=== PATIENT | female | born 1960 | race African-American/Black ===

== ENCOUNTER 2019-04-15 01:37 | Inpatient (IN) | payer MEDICAID ==
[~2019-04-15] VITALS: Ht 162.6 cm; Wt 44.9 kg
[2019-04-15] MEDS ORDERED: ONDANSETRON HCL 4MG/2ML INJ IV STA (02:35)
[2019-04-15] MEDS ORDERED: SODIUM CHLORIDE 0.9% 1,000 ML IV ONE (02:35)
[2019-04-15] MEDS ORDERED: MORPHINE SULFATE 4 MG/ML CPJ (NOT FOR IM USE) IV STA (02:35)
[2019-04-15 03:04] LABS: BASOPHILS % 0.2 % (0.0-2.0); EOSINOPHILS % 0.1 % (0.0-5.0); HEMATOCRIT. 24.6 % (36.0-48.0); LYMPHOCYTES % 13.6 % (20.0-50.0); MEAN CORPUSCULAR HEMOGLOBIN 28.3 pg (28.0-32.0); MEAN CORPUSCULAR VOLUME 87.2 fL (81.0-99.0); MEAN PLATELET VOLUME 6.6 fl (7.4-10.4); MONOCYTES % 7.3 % (2.0-8.0); NEUTROPHILS % 78.8 % (40.0-76.0); PLATELET 467 x1000/uL (130-400); RED BLOOD CELL COUNT 2.82 mill/uL (4.2-5.4); RED CELL DISTRIBUTION WIDTH 15.9 % (11.6-14.6)
[2019-04-15 03:05] LABS: CHLORIDE 102 mEq/L (98-107)
[2019-04-15] MEDS ORDERED: GUAIFENESIN 200MG/10ML SUGAR FREE UDC PO PRN (06:45)
[2019-04-15] MEDS ORDERED: NITROGLYCERIN 0.4MG TABLET SL SL PRN (06:45)
[2019-04-15] MEDS ORDERED: DEXTROSE 50% WATER 50ML SYRINGE IV PRN (06:45)
[2019-04-15] MEDS ORDERED: ENOXAPARIN 40MG/0.4ML SYR SUBCUT SCH (06:45)
[2019-04-15] MEDS ORDERED: ACETAMINOPHEN 325MG TABLET PO PRN (06:45)
[2019-04-15] MEDS ORDERED: LORAZEPAM 0.5MG TABLET PO PRN (06:45)
[2019-04-15] MEDS ORDERED: CLONIDINE 0.1MG TABLET PO PRN (06:45)
[2019-04-15] MEDS ORDERED: DOCUSATE SODIUM 100MG CAPSULE PO PRN (06:45)
[2019-04-15] MEDS ORDERED: MAGNESIUM/ALUMINUM HYDROXIDE/SIMETHICONE 30ML UDC PO PRN (06:45)
[2019-04-15] MEDS ORDERED: IPRATROPIUM/ALBUTEROL 0.5-3(2.5)MG/3ML NEB NEB PRN (06:45)
[2019-04-15] MEDS ORDERED: ONDANSETRON HCL 4MG/2ML INJ IV PRN (06:45)
[2019-04-15] MEDS ORDERED: KETOROLAC 15MG/ML VIAL IV PRN (06:45)
[2019-04-15 07:19] LABS: FOLIC ACID (FOLATE) SERUM 12.3 ng/mL (>5.38)
[2019-04-15 10:20] LABS: CLARITY URINE CLEAR (CLEAR); COLOR URINE YELLOW (YELLOW); KETONES URINE NEGATIVE (NEGATIVE); LEUKOCYTE ESTERASE URINE NEGATIVE (NEGATIVE); NITRITE URINE NEGATIVE (NEGATIVE); OCCULT BLOOD URINE 1+ (NEGATIVE); PH URINE 5.5 (4.5-8.0); PROTEIN URINE 1+ (NEGATIVE); SPECIFIC GRAVITY URINE 1.019 (1.005-1.030)
[2019-04-15 10:43] LABS: *AMPHETAMINES SCREEN URINE NEGATIVE (NEGATIVE); *BARBITURATES SCREEN URINE NEGATIVE (NEGATIVE); *BENZODIAZEPINES SCREEN URINE NEGATIVE (NEGATIVE); *COCAINE SCREEN URINE PRESUMTIVE POSITIVE (NEGATIVE)
[2019-04-15 10:44] LABS: CANNABINOID URINE SCREEN NEGATIVE (NEGATIVE); METHADONE URINE SCREEN NEGATIVE (NEGATIVE); OPIATES URINE SCREEN NEGATIVE (NEGATIVE); PHENCYCLIDINE URINE SCREEN PRESUMTIVE POSITIVE (NEGATIVE)
[2019-04-15 11:35] VITALS: BP 151/76
[2019-04-15] MEDS: BLOOD SUGAR DIAGNOSTIC STRIP TEST SCH ×3 (13:00→20:23)
[2019-04-15] MEDS ORDERED: CARI250T PO (13:09)
[2019-04-15] MEDS ORDERED: tylenol #3 PO (13:20)
[2019-04-15] MEDS ORDERED: AMLO5TAB4 MT (13:21)
[2019-04-15 14:15] VITALS: BP 142/73
[2019-04-15] MEDS: FAMOTIDINE 20MG TABLET PO SCH (14:18)
[2019-04-15] MEDS: METOPROLOL TARTRATE 25MG TABLET PO SCH ×2 (14:19→20:31)
[2019-04-15] MEDS: ASPIRIN 325MG EC TABLET PO SCH (14:19)
[2019-04-15] MEDS: AMLODIPINE 10MG TABLET PO SCH (14:25)
[2019-04-15] MEDS: INSULIN LISPRO 100 UNITS/ML SUBCUT SCH ×3 (14:47→20:36)
[2019-04-15] MEDS: ENOXAPARIN 30MG/0.3ML SYR SUBCUT SCH (14:48)
[2019-04-15 15:52] LABS: CREATINE KINASE 32 IU/L (26-192)
[2019-04-15 15:53] LABS: CREATINE KINASE MB FRACTION 1.5 ng/mL (0.5-3.6)
[2019-04-15 16:00] VITALS: BP 113/53
[2019-04-15] MEDS: SUCRALFATE 1 G/10 ML UDC PO SCH ×2 (17:46→20:31)
[2019-04-15] MEDS: FERROUS SULFATE 300MG/5ML UDC PO SCH (18:49)
[2019-04-15 20:00] VITALS: BP 118/66
[2019-04-15] MEDS: ZOLPIDEM TARTRATE 5MG TABLET PO PRN (20:31)
[2019-04-15] MEDS ORDERED: PNEUMOCOCCAL 23-VAL P-SAC VAC 0.5 ML IM ONE (21:00)
[2019-04-16] VITALS (11 sets, daily range): BP systolic 95–138; BP diastolic 43–68
[2019-04-16 01:11] LABS: CREATINE KINASE 28 IU/L (26-192)
[2019-04-16 01:12] LABS: CREATINE KINASE MB FRACTION 1.4 ng/mL (0.5-3.6)
[2019-04-16] MEDS: BLOOD SUGAR DIAGNOSTIC STRIP TEST SCH ×4 (06:48→21:00)
[2019-04-16] MEDS: INSULIN LISPRO 100 UNITS/ML SUBCUT SCH ×4 (06:52→22:06)
[2019-04-16] MEDS: FERROUS SULFATE 300MG/5ML UDC PO SCH ×3 (06:52→17:37)
[2019-04-16] MEDS: SUCRALFATE 1 G/10 ML UDC PO SCH ×2 (06:52→12:44)
[2019-04-16 08:05] LABS: CHLORIDE 105 mEq/L (98-107)
[2019-04-16 08:18] LABS: BASOPHILS % 0.7 % (0.0-2.0); EOSINOPHILS % 0.1 % (0.0-5.0); LYMPHOCYTES % 18.9 % (20.0-50.0); MEAN CORPUSCULAR HEMOGLOBIN 28.4 pg (28.0-32.0); MEAN CORPUSCULAR VOLUME 87.3 fL (81.0-99.0); NEUTROPHILS % 72.3 % (40.0-76.0); PLATELET 402 x1000/uL (130-400); RED BLOOD CELL COUNT 2.35 mill/uL (4.2-5.4); RED CELL DISTRIBUTION WIDTH 15.6 % (11.6-14.6)
[2019-04-16 08:41] LABS: HEMATOCRIT. 20.5 % (36.0-48.0); HEMOGLOBIN. 6.7 g/dL (12.0-16.0)
[2019-04-16] MEDS: ASPIRIN 325MG EC TABLET PO SCH (09:21)
[2019-04-16] MEDS: METOPROLOL TARTRATE 25MG TABLET PO SCH ×2 (09:22→22:04)
[2019-04-16] MEDS: FAMOTIDINE 20MG TABLET PO SCH (09:22)
[2019-04-16] MEDS: AMLODIPINE 10MG TABLET PO SCH (09:23)
[2019-04-16] MEDS: ENOXAPARIN 30MG/0.3ML SYR SUBCUT SCH (09:24)
[2019-04-16] MEDS: PANTOPRAZOLE SODIUM 40 MG/VIAL IV SCH ×2 (10:20→22:04)
[2019-04-16] MEDS ORDERED: IRON SUCROSE COMPLEX 100 MG/5 ML ML IV SCH (12:15)
[2019-04-16 14:30] LABS: HEMATOCRIT 19.6 % (36.0-48.0); HEMOGLOBIN 6.3 g/dL (12.0-16.0)
[2019-04-16] MEDS ORDERED: SORBITOL 70% SOLN 30ML PO SCH ×4 (15:00→22:00)
[2019-04-16] MEDS: MULTIVITAMINS,THER W-MINERALS TABLET PO SCH (17:37)
[2019-04-16 21:08] LABS: HEMATOCRIT 24.1 % (36.0-48.0)
[2019-04-16] MEDS: ZOLPIDEM TARTRATE 5MG TABLET PO PRN (22:04)
[2019-04-17] VITALS: BP 115/60
[2019-04-17 03:24] LABS: HEMATOCRIT 23.6 % (36.0-48.0); HEMOGLOBIN 7.7 g/dL (12.0-16.0)
[2019-04-17 03:34] LABS: INR 0.9; PROTHROMBIN TIME 9.4 sec (9.6-11.0)
[2019-04-17 04:00] VITALS: BP 117/65
[2019-04-17] MEDS: BLOOD SUGAR DIAGNOSTIC STRIP TEST SCH ×4 (06:25→21:31)
[2019-04-17] MEDS: INSULIN LISPRO 100 UNITS/ML SUBCUT SCH ×4 (06:53→21:32)
[2019-04-17] MEDS: FERROUS SULFATE 300MG/5ML UDC PO SCH ×3 (06:55→17:15)
[2019-04-17 08:00] VITALS: BP 115/53
[2019-04-17] MEDS: IRON SUCROSE COMPLEX 100 MG/5 ML ML IV SCH (09:04)
[2019-04-17] MEDS: PANTOPRAZOLE SODIUM 40 MG/VIAL IV SCH (09:04)
[2019-04-17] MEDS: AMLODIPINE 10MG TABLET PO SCH (09:04)
[2019-04-17] MEDS: MULTIVITAMINS,THER W-MINERALS TABLET PO SCH (09:05)
[2019-04-17] MEDS: METOPROLOL TARTRATE 25MG TABLET PO SCH ×2 (09:05→21:32)
[2019-04-17] MEDS ORDERED: BACTERIOSTATIC SODIUM CHLORIDE 0.9% 30ML VIAL IJ ONE (09:28)
[2019-04-17 12:00] VITALS: BP 98/58
[2019-04-17] MEDS ORDERED: FENTANYL CITRATE/PF 50MCG/ML 2ML VIAL ONE (15:18)
[2019-04-17] MEDS ORDERED: SIMETHICONE 40 MG/0.6 ML 30ML ONE (15:18)
[2019-04-17] MEDS ORDERED: MIDAZOLAM HCL 5 MG/5 ML VIAL ONE (15:18)
[2019-04-17] MEDS ORDERED: MIDAZOLAM HCL 5 MG/5 ML VIAL IV PRN (15:20)
[2019-04-17] MEDS ORDERED: FENTANYL CITRATE/PF 50MCG/ML 2ML VIAL IV PRN (15:21)
[2019-04-17] MEDS ORDERED: OMEPRAZOLE 20MG CAPSULE EXTENDED RELEASE PO SCH (16:45)
[2019-04-17 17:30] VITALS: BP 127/75
[2019-04-17 20:00] VITALS: BP 130/61
[2019-04-17] MEDS ORDERED: PANTOPRAZOLE 40MG DR TABLET PO SCH (21:00)
[2019-04-17] MEDS: ZOLPIDEM TARTRATE 5MG TABLET PO PRN (21:32)
[2019-04-18] VITALS: BP 107/55
[2019-04-18 04:00] VITALS: BP 108/58
[2019-04-18] MEDS: BLOOD SUGAR DIAGNOSTIC STRIP TEST SCH ×4 (05:57→20:57)
[2019-04-18] MEDS: OMEPRAZOLE 20MG CAPSULE EXTENDED RELEASE PO SCH (05:57)
[2019-04-18] MEDS: INSULIN LISPRO 100 UNITS/ML SUBCUT SCH ×4 (06:03→21:10)
[2019-04-18 08:00] VITALS: BP 126/64
[2019-04-18] MEDS: MULTIVITAMINS,THER W-MINERALS TABLET PO SCH (08:26)
[2019-04-18] MEDS: FERROUS SULFATE 300MG/5ML UDC PO SCH ×3 (08:26→17:07)
[2019-04-18] MEDS: METOPROLOL TARTRATE 25MG TABLET PO SCH ×2 (08:27→21:04)
[2019-04-18] MEDS: IRON SUCROSE COMPLEX 100 MG/5 ML ML IV SCH (08:27)
[2019-04-18] MEDS: AMLODIPINE 10MG TABLET PO SCH (08:27)
[2019-04-18] MEDS: ASCORBIC ACID 500 MG TABLET PO SCH ×3 (11:23→21:04)
[2019-04-18 12:00] VITALS: BP 103/67
[2019-04-18 14:03] LABS: BASOPHILS % 0.2 % (0.0-2.0); HEMATOCRIT. 24.7 % (36.0-48.0); HEMOGLOBIN. 8.1 g/dL (12.0-16.0); LYMPHOCYTES % 10.9 % (20.0-50.0); MEAN CORPUSCULAR HEMOGLOBIN 28.6 pg (28.0-32.0); MEAN CORPUSCULAR VOLUME 87.1 fL (81.0-99.0); MEAN PLATELET VOLUME 6.9 fl (7.4-10.4); MONOCYTES % 8.2 % (2.0-8.0); NEUTROPHILS % 80.7 % (40.0-76.0); PLATELET 423 x1000/uL (130-400); RED BLOOD CELL COUNT 2.83 mill/uL (4.2-5.4); RED CELL DISTRIBUTION WIDTH 15.2 % (11.6-14.6)
[2019-04-18 16:00] VITALS: BP 123/56
[2019-04-18 20:00] VITALS: BP 123/58
[2019-04-19] VITALS: BP_SYST 109; BP_SYST 96; BP_DIAS 55; BP_DIAS 56
[2019-04-19] MEDS: ZOLPIDEM TARTRATE 5MG TABLET PO PRN (02:11)
[2019-04-19 04:00] VITALS: BP 142/77
[2019-04-19] MEDS: OMEPRAZOLE 20MG CAPSULE EXTENDED RELEASE PO SCH (06:28)
[2019-04-19] MEDS: FERROUS SULFATE 300MG/5ML UDC PO SCH ×2 (06:28→13:35)
[2019-04-19] MEDS: ASCORBIC ACID 500 MG TABLET PO SCH ×2 (06:28→13:35)
[2019-04-19] MEDS: BLOOD SUGAR DIAGNOSTIC STRIP TEST SCH ×2 (06:45→11:48)
[2019-04-19] MEDS: INSULIN LISPRO 100 UNITS/ML SUBCUT SCH ×2 (06:50→11:52)
[2019-04-19 07:06] LABS: BASOPHILS % 0.5 % (0.0-2.0); HEMATOCRIT. 24.5 % (36.0-48.0); HEMOGLOBIN. 8.2 g/dL (12.0-16.0); LYMPHOCYTES % 13.6 % (20.0-50.0); MEAN CORPUSCULAR HEMOGLOBIN 29.6 pg (28.0-32.0); MEAN CORPUSCULAR VOLUME 88.6 fL (81.0-99.0); MEAN PLATELET VOLUME 6.7 fl (7.4-10.4); MONOCYTES % 10.9 % (2.0-8.0); PLATELET 432 x1000/uL (130-400); RED BLOOD CELL COUNT 2.76 mill/uL (4.2-5.4); RED CELL DISTRIBUTION WIDTH 15.4 % (11.6-14.6)
[2019-04-19 07:13] LABS: CHLORIDE 107 mEq/L (98-107)
[2019-04-19 08:11] VITALS: BP 142/63
[2019-04-19] MEDS: MULTIVITAMINS,THER W-MINERALS TABLET PO SCH (08:44)
[2019-04-19] MEDS: AMLODIPINE 10MG TABLET PO SCH (08:44)
[2019-04-19] MEDS: IRON SUCROSE COMPLEX 100 MG/5 ML ML IV SCH (08:44)
[2019-04-19] MEDS: METOPROLOL TARTRATE 25MG TABLET PO SCH (08:45)
[2019-04-19 12:00] VITALS: BP 138/65
[2019-04-19 16:00] VITALS: BP 114/66
[2019-04-19 16:09] VITALS: BP 114/66
== END 2019-04-19 16:23 | disposition home or self-care (01) | DRG 241 ==
LOC: ER 01:55 → EDBD 06:12 → 5WST 06:12 → EDBEDREQ 06:15 → EDBEDREQTM 06:15 → ENRESERV 09:46
PROVIDERS: ADMIT Internal Medicine; ATTEND Internal Medicine
PROC: 30233N1 Transfusion of Nonautologous Red Blood Cells into Peripheral Vein, Percutaneous Approach (ICD-10-PCS; principal; 2019-04-16)
PROC: 0DB78ZX Excision of Stomach, Pylorus, Via Natural or Artificial Opening Endoscopic, Diagnostic (ICD-10-PCS; 2019-04-17)
PROC: 0DJD8ZZ Inspection of Lower Intestinal Tract, Via Natural or Artificial Opening Endoscopic (ICD-10-PCS; 2019-04-17)
DX: K26.4 Chronic or unspecified duodenal ulcer with hemorrhage (principal); N17.9 Acute kidney failure, unspecified; E44.0 Moderate protein-calorie malnutrition; K31.84 Gastroparesis; K31.1 Adult hypertrophic pyloric stenosis; E11.43 Type 2 diabetes mellitus with diabetic autonomic (poly)neuropathy; E44.1 Mild protein-calorie malnutrition; E11.65 Type 2 diabetes mellitus with hyperglycemia; F17.210 Nicotine dependence, cigarettes, uncomplicated; D50.9 Iron deficiency anemia, unspecified; D62 Acute posthemorrhagic anemia; I10 Essential (primary) hypertension; K21.9 Gastro-esophageal reflux disease without esophagitis; Z68.1 Body mass index [BMI] 19.9 or less, adult; Z79.4 Long term (current) use of insulin; Z87.11 Personal history of peptic ulcer disease; Z90.49 Acquired absence of other specified parts of digestive tract; Z79.899 Other long term (current) drug therapy; Z91.14 Patient's other noncompliance with medication regimen; Z98.891 History of uterine scar from previous surgery
CPT/HCPCS: 36415; 71045; 74176; 80061; 80305; 81003; 82270; 82550; 82553; 82607; 82746; 82962; 83036; 83540; 83550; 84484; 85014; 85018; 85049; 85384; 86677; 86850; 86900; 86920; 93005; 93970; 99152; 99153; 99285; C9113; J1650; J1815; J1885; J2250; J2270; J2405; J3010; J3490; J7030; P9016; G0500